=== PATIENT | male | born 1965 | race Two or more races ===

== ENCOUNTER 2020-09-04 12:10 | Emergency (ER) | payer OTHER ==
[~2020-09-04] VITALS: Ht 162.6 cm; Wt 78.9 kg
[2020-09-04] MEDS ORDERED: DIOVAN160 M1 (12:55)
[2020-09-04] MEDS ORDERED: SYNTHROID50 MCG (12:55)
[2020-09-04] MEDS ORDERED: ACIPHEX20 MG (12:57)
[2020-09-05] MEDS ORDERED: MECLIZINE HCL12.5 MG PO (12:48)
== END 2020-09-05 13:03 | disposition home or self-care (01) ==
LOC: ER 12:10
DX: S00.83XA Contusion of other part of head, initial encounter (principal); W18.39XA Other fall on same level, initial encounter; Y93.89 Activity, other specified; Y92.098 Other place in other non-institutional residence as the place of occurrence of the external cause; Y99.8 Other external cause status; R51.9 Headache, unspecified; R42 Dizziness and giddiness; Z11.52 Encounter for screening for COVID-19
CPT/HCPCS: 70551

== ENCOUNTER 2020-10-04 19:37 | Emergency (ER) | payer OTHER ==
[~2020-10-04] VITALS: Ht 162.6 cm; Wt 81.6 kg
[~2020-10-04 19:37] MED LIST: ACIPHEX20 MG; DIOVAN160 M1; MECLIZINE HCL12.5 MG PO; SYNTHROID50 MCG
[2020-10-04] MEDS ORDERED: REMERON15 M1 (20:17)
[2020-10-04] MEDS ORDERED: LEXAPRO20 MG (20:17)
[2020-10-04] MEDS ORDERED: RESTORIL15 MG (20:18)
[2020-10-04] MEDS ORDERED: LIPITOR40 M1 (20:20)
[2020-10-04] MEDS ORDERED: BUSPIRONE HCL7.5 MG (20:20)
[2020-10-05] MEDS ORDERED: TENCON 50-3251 EACH PO (00:51)
== END 2020-10-05 01:08 | disposition home or self-care (01) ==
LOC: ER 19:37
DX: S00.83XA Contusion of other part of head, initial encounter (principal); W18.09XA Striking against other object with subsequent fall, initial encounter; Y93.89 Activity, other specified; Y92.89 Other specified places as the place of occurrence of the external cause; Y99.8 Other external cause status; R51.9 Headache, unspecified; R42 Dizziness and giddiness; T43.225A Adverse effect of selective serotonin reuptake inhibitors, initial encounter